=== PATIENT | male | born 1975 | race Caucasian/White ===

== ENCOUNTER 2020-10-21 21:47 | Observation (INO) | payer MEDICARE, OTHER ==
--- NOTE | 2020-10-21 22:49 | ED ---
Recheck HPI - General Stated Complaint: Abn Labs Time Seen by Provider: 10/21/20 21:56 Source: family, EMS Mode of arrival: EMS Limitations: language barrier, altered mental status, physical limitation - History of Present Illness Initial Comments: This patient is a 45-year-old man with history of [place] tooth. He arrives by ambulance to have evaluation for an abnormal lab. The patient had been seen by visiting nurse today as follow-up as he had been at [facility] due to hematuria last week. On the routine lab testing today, it was noted that his lactic acid was abnormal. Patient's family member states that this was reported as low. They did have not noticed a change in him today. History is from the patient's Aunt. Patient denies complaint MD Complaint: abnormal lab Onset/Timin -: hour(s) - Related Data Allergies Allergy/AdvReac Type Severity Reaction Status Date / Time Iodinated Contrast Media Allergy Rash/Hives Verified 10/21/20 22:35 prednisolone Allergy Itching Verified 10/21/20 22:35 strawberry Allergy Rash/Hives Verified 10/21/20 22:35 Review of Systems ROS Statement: Those systems with pertinent positive or pertinent negative responses have been documented in the HPI. ROS Other: All systems not noted in ROS Statement are negative. Constitutional: Denies: fever Respiratory: Denies: cough, dyspnea Cardiovascular: Denies: chest pain Gastrointestinal: Denies: abdominal pain Neurological: Denies: headache Past Medical History Additional Past Medical History / Comment(s): CMT, muscular dystrophy, tounge tied, speech impairment, History of Any Multi-Drug Resistant Organisms: None Reported Additional Past Surgical History / Comment(s): muscle biopsy, club foot left (Dr. dominguez) Past Psychological History: No Psychological Hx Reported Smoking Status: Never smoker Past Alcohol Use History: None Reported Past Drug Use History: None Reported General Exam Limitations: language barrier, altered mental status, physical limitation General appearance: alert, in no apparent distress, cachectic Head exam: Present: atraumatic, normocephalic Eye exam: Present: normal appearance. Absent: scleral icterus, conjunctival injection Respiratory exam: Present: normal lung sounds bilaterally. Absent: respiratory distress, wheezes, rales, rhonchi, stridor Cardiovascular Exam: Present: regular rate, normal rhythm, normal heart sounds. Absent: systolic murmur, diastolic murmur, rubs, gallop GI/Abdominal exam: Present: soft, other (Fullness in the left lower quadrant consistent with stool). Absent: distended, tenderness, guarding, rebound, rigid, mass exam: Present: other (Hollins catheter present otherwise normal inspection) Extremities exam: Present: other (There is symmetric muscle wasting) Neurological exam: Present: alert Skin exam: Present: warm, dry, intact, pallor. Absent: rash Course Vital Signs 10/21/20 10/22/20 10/22/20 22:24 02:16 03:00 Pulse Rate 85 78 81 Respiratory 16 16 15 Rate Blood Pressure 96/74 107/75 107/75 O2 Sat by Pulse 100 100 99 Oximetry Medical Decision Making - Lab Data Result diagrams: 10/22/20 00:05 10/22/20 00:05 Lab Results 10/22/20 10/22/20 10/22/20 Range/Units 00:05 00:05 00:05 WBC 2.8 L (3.8-10.6) k/uL RBC 4.28 L (4.30-5.90) m/uL Hgb 11.1 L (13.0-17.5) gm/dL Hct 32.6 L (39.0-53.0) % MCV 76.3 L (80.0-100.0) fL MCH 25.9 (25.0-35.0) pg MCHC 34.0 (31.0-37.0) g/dL RDW 17.0 H (11.5-15.5) % Plt Count 127 L (150-450) k/uL MPV 11.0 Neutrophils % 55 % Lymphocytes % 32 % Monocytes % 6 % Eosinophils % 2 % Basophils % 1 % Neutrophils # 1.5 (1.3-7.7) k/uL Lymphocytes # 0.9 L (1.0-4.8) k/uL Monocytes # 0.2 (0-1.0) k/uL Eosinophils # 0.1 (0-0.7) k/uL Basophils # 0.0 (0-0.2) k/uL Anisocytosis Slight Microcytosis Slight Sodium 135 L (137-145) mmol/L Potassium 3.5 (3.5-5.1) mmol/L Chloride 111 H (98-107) mmol/L Carbon Dioxide 15 L (22-30) mmol/L Anion Gap 9 mmol/L BUN 18 (9-20) mg/dL Creatinine 0.46 L (0.66-1.25) mg/dL Est GFR (CKD-EPI)AfAm >90 (>60 ml/min/1.73 sqM) Est GFR (CKD-EPI)NonAf >90 (>60 ml/min/1.73 sqM) Glucose 72 L (74-99) mg/dL Lactic Ac Sepsis Rflx Plasma Lactic Acid Naga 2.2 H* (0.7-2.0) mmol/L Calcium 8.8 (8.4-10.2) mg/dL Total Bilirubin 0.3 (0.2-1.3) mg/dL AST 45 (17-59) U/L ALT 24 (4-49) U/L Alkaline Phosphatase 115 (38-126) U/L Total Protein 5.8 L (6.3-8.2) g/dL Albumin 2.6 L (3.5-5.0) g/dL Urine Color Urine Appearance (Clear) Urine pH (5.0-8.0) Ur Specific [place] (1.001-1.035) Urine Protein (Negative) Urine Glucose (UA) (Negative) Urine Ketones (Negative) Urine Blood (Negative) Urine Nitrite (Negative) Urine Bilirubin (Negative) Urine Urobilinogen (<2.0) mg/dL Ur Leukocyte Esterase (Negative) Urine RBC (0-5) /hpf Urine WBC (0-5) /hpf Urine Bacteria (None) /hpf Urine Mucus (None) /hpf 10/22/20 10/22/20 Range/Units 01:59 02:05 WBC (3.8-10.6) k/uL RBC (4.30-5.90) m/uL Hgb (13.0-17.5) gm/dL Hct (39.0-53.0) % MCV (80.0-100.0) fL MCH (25.0-35.0) pg MCHC (31.0-37.0) g/dL RDW (11.5-15.5) % Plt Count (150-450) k/uL MPV Neutrophils % % Lymphocytes % % Monocytes % % Eosinophils % % Basophils % % Neutrophils # (1.3-7.7) k/uL Lymphocytes # (1.0-4.8) k/uL Monocytes # (0-1.0) k/uL Eosinophils # (0-0.7) k/uL Basophils # (0-0.2) k/uL Anisocytosis Microcytosis Sodium (137-145) mmol/L Potassium (3.5-5.1) mmol/L Chloride (98-107) mmol/L Carbon Dioxide (22-30) mmol/L Anion Gap mmol/L BUN (9-20) mg/dL Creatinine (0.66-1.25) mg/dL Est GFR (CKD-EPI)AfAm (>60 ml/min/1.73 sqM) Est GFR (CKD-EPI)NonAf (>60 ml/min/1.73 sqM) Glucose (74-99) mg/dL Lactic Ac Sepsis Rflx Y Plasma Lactic Acid Naga (0.7-2.0) mmol/L Calcium (8.4-10.2) mg/dL Total Bilirubin (0.2-1.3) mg/dL AST (17-59) U/L ALT (4-49) U/L Alkaline Phosphatase (38-126) U/L Total Protein (6.3-8.2) g/dL Albumin (3.5-5.0) g/dL Urine Color Yellow Urine Appearance Clear (Clear) Urine pH 6.5 (5.0-8.0) Ur Specific [place] 1.010 (1.001-1.035) Urine Protein 1+ H (Negative) Urine Glucose (UA) Negative (Negative) Urine Ketones Negative (Negative) Urine Blood Small H (Negative) Urine Nitrite Negative (Negative) Urine Bilirubin Negative (Negative) Urine Urobilinogen 2.0 (<2.0) mg/dL Ur Leukocyte Esterase Large H (Negative) Urine RBC 10 H (0-5) /hpf Urine WBC 8 H (0-5) /hpf Urine Bacteria Rare H (None) /hpf Urine Mucus Rare H (None) /hpf Disposition Clinical Impression: Lactic acidosis Disposition[facility] Is patient prescribed a controlled substance at d/c from ED?: No
[2020-10-22 00:36] LABS: Anisocytosis Slight; Basophils % (A) 1 %; Eosinophils # (A) 0.1 k/uL (0-0.7); Eosinophils % (A) 2 %; HCT 32.6 % (39.0-53.0); HGB 11.1 gm/dL (13.0-17.5); Lymphocytes # (A) 0.9 k/uL (1.0-4.8); Lymphocytes % (A) 32 %; MCH 25.9 pg (25.0-35.0); MCV 76.3 fL (80.0-100.0); Microcytosis Slight; Monocytes # (A) 0.2 k/uL (0-1.0); Monocytes % (A) 6 %; Neutrophils # (A) 1.5 k/uL (1.3-7.7); Neutrophils % (A) 55 %; Platelet Count 127 k/uL (150-450); RBC 4.28 m/uL (4.30-5.90); WBC 2.8 k/uL (3.8-10.6)
[2020-10-22 00:50] LABS: ALT 24 U/L (4-49); AST 45 U/L (17-59); African American GFR (CKD) >90 (>60 ml/min/1.73 sqM); Albumin 2.6 g/dL (3.5-5.0); Alkaline Phosphatase 115 U/L (38-126); Anion Gap 9 mmol/L; Blood Urea Nitrogen 18 mg/dL (9-20); Calcium 8.8 mg/dL (8.4-10.2); Carbon Dioxide 15 mmol/L (22-30); Chloride 111 mmol/L (98-107); Glucose 72 mg/dL (74-99); Non-African American GFR(CKD) >90 (>60 ml/min/1.73 sqM); Potassium 3.5 mmol/L (3.5-5.1); Sodium 135 mmol/L (137-145); Total Bilirubin 0.3 mg/dL (0.2-1.3); Total Protein 5.8 g/dL (6.3-8.2)
[2020-10-22] MEDS ORDERED: SODIUM CHLORIDE 0.9% 1,000 ML IV ONE (02:05)
[2020-10-22] MEDS ORDERED: SODIUM CHLORIDE 0.9% 1,000 ML IV STA (02:05)
--- NOTE | 2020-10-22 02:37 | XR ---
EXAMINATION TYPE: XR chest 1V portable DATE OF EXAM: 10/22/2020 COMPARISON: NONE HISTORY: Cough TECHNIQUE: Single view FINDINGS: Heart and mediastinum are normal. Lungs are clear. Diaphragm is normal. Bony thorax is inta ct. There is slight thoracic dextroscoliosis. IMPRESSION: No active cardiopulmonary disease. Normal heart.
[2020-10-22] MEDS ORDERED: ACETAMINOPHEN TAB 325 MG TAB PO PRN (02:40)
[2020-10-22] MEDS ORDERED: NALOXONE 0.4 MG/ML 1 ML VIAL IV PRN (02:40)
[2020-10-22] MEDS ORDERED: SODIUM CHLORIDE 0.9% 1,000 ML IV SCH (02:45)
[2020-10-22 02:56] LABS: Appearance,Urine Clear (Clear); Bacteria,Urine Rare /hpf; Bilirubin,Urine Negative (Negative); Blood,Urine Small (Negative); Color,Urine Yellow; Glucose,Urine (UA) Negative (Negative); Ketones,Urine Negative (Negative); Leukocyte Esterase,Urine Large (Negative); Mucus,Urine Rare /hpf; Nitrite,Urine Negative (Negative); PH, Urine 6.5 (5.0-8.0); Protein,Urine 1+ (Negative); RBC,Urine 10 /hpf (0-5); WBC,Urine 8 /hpf (0-5)
[2020-10-22 11:23] LABS: African American GFR (CKD) >90 (>60 ml/min/1.73 sqM); Anion Gap 7 mmol/L; Blood Urea Nitrogen 16 mg/dL (9-20); Calcium 8.2 mg/dL (8.4-10.2); Carbon Dioxide 13 mmol/L (22-30); Chloride 118 mmol/L (98-107); Glucose 101 mg/dL (74-99); Non-African American GFR(CKD) >90 (>60 ml/min/1.73 sqM); Potassium 4.3 mmol/L (3.5-5.1); Sodium 138 mmol/L (137-145)
[2020-10-22] MEDS: NYSTATIN 100,000UNIT/GM CREAM 30 GM TUBE TOPICAL SCH ×2 (12:30→23:32)
[2020-10-22] MEDS ORDERED: DEXTROSE 5% IN WATER 1,000 ML with SODIUM ACETATE 100 MEQ IV SCH (13:00)
[2020-10-22 13:37] LABS: Anisocytosis Slight; HCT 28.6 % (39.0-53.0); Hypochromasia Slight; MCH 25.7 pg (25.0-35.0); MCHC 33.1 g/dL (31.0-37.0); MCV 77.7 fL (80.0-100.0); Mean Platelet Volume 13.5; Microcytosis Slight; Platelet Count 117 k/uL (150-450); Poikilocytosis Slight; RBC 3.68 m/uL (4.30-5.90); WBC 2.5 k/uL (3.8-10.6)
[2020-10-22 13:43] LABS: HGB 9.5 gm/dL (13.0-17.5)
[2020-10-22 14:04] LABS: Basophils # (M) 0.03 k/uL (0-0.2); Lymphocytes # (M) 0.68 k/uL (1.0-4.8); Monocytes # (M) 0.08 k/uL (0-1.0); Neutrophils # (M) 1.63 k/uL (1.3-7.7); Neutrophils % (M) 65 %; Nucleated Red Blood Cells 0 /100 WBC (0-0); Total Cells Counted 100
[2020-10-22 14:06] LABS: Large Platelets Present
--- NOTE | 2020-10-22 16:07 | P.HPIM ---
History of Present Illness H&P Date: 10/22/20 Chief Complaint: Abnormal labs History of presenting complaint: This is a 45-year-old patient who follows with visiting physicians Dr. Pino. History is obtained by patient's aunt pippa was also the POA. Patient is 24 7 care. Patient is severely tongue-tied and had a very slurred speech. Patient did speak a few words and follow commands. Unable to walk. Patient not able to feed himself. Patient is having hematuria and had been taking to [facility]. Details are not known. Current Hollins catheters for 2 weeks. Since that hematuria is resolved. Patient does take a pured diet. Appetite is fair. Patient has Afwckaw-[id number]-ivzwp. Patient was sent in for abnormal labs. That is abnormal lactic acid. Patient for a lactic acid of 2.2 and abnormal UA. Review of systems cannot be done as patient is not able to speak. Relevant finding as above Past medical history to include: Fbmxvqy-qsqqk-[id number], not ambulatory, Hollins catheter, needs help with feeding, 24 7 caregivers, tongue-tied Social history: 24 7 caregivers. Nonambulatory. Hollins catheter. Needs help with feeding Family history: Noncontributory, reviewed Physical examination: VITAL SIGNS: 97.7, 74, 16, 101/68, 100% room air GENERAL: BMI 15.7, reclining in bed, awake. EYES: Pupils equal. Conjunctiva normal. HEENT: External appearance of nose and ears normal, oral cavity grossly normal. NECK: JVD not raised; masses not palpable. HEART: First and second heart sounds are normal; no edema. LUNGS: Respiratory rate normal; clear to auscultation. ABDOMEN: Soft, nontender, liver spleen not palpable, no masses palpable. Hollins catheter PSYCH: Unable to assess. Very slurred speech.l. NEUROLOGICAL: [Cranial nerves grossly intact; no facial asymmetry, decreased bowel in the limbs. Footdrop. Very slurred speech. LYMPHATICS: No lymph nodes palpable in the axilla and neck INVESTIGATIONS, reviewed in the clinical context: WBC 2.5 hemoglobin 9.5 platelets 117 potassium 4.3 bicarb 13 BUN 16 creatinine 0.45 lactic acid 2.2 albumin 2.6 UA positive for leukoesterase, WBC Assessment and plan: -Possible acute UTI with cystitis secondary to Hollins catheter IV ceftriaxone 1 g every 12. -Lactic acidosis, could be from infection IV fluids -Severe protein calorie malnutrition with a BMI of 15.7 Nutritional supplements. 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 IV ceftriaxone. Feeding with assistance. Check iron studies. Care discussed in detail with patient's POA at the bedside. They're able to provide 24 7 bedside care of the hospital will be done in the best interest of the patient. Past Medical History Additional Past Medical History / Comment(s): CMT, muscular dystrophy, tounge tied, speech impairment, History of Any Multi-Drug Resistant Organisms: None Reported Additional Past Surgical History / Comment(s): muscle biopsy, club foot left (Dr. dominguez) Smoking Status: Never smoker - Past Family History Mother Family Medical History: No Reported History Medications and Allergies Home Medications Medication Instructions Recorded Confirmed Type Cholecalciferol [Vitamin D3 (25 50 mcg PO MOTUWETHFR 10/22/20 10/22/20 History Mcg = 1000 Iu)] Nystatin 100,000Unit/gm Cream 1 applic TOPICAL BID 10/22/20 10/22/20 History [Mycostatin Cream] cephALEXin [Keflex] 500 mg PO TID 10/22/20 10/22/20 History Allergies Allergy/AdvReac Type Severity Reaction Status Date / Time Iodinated Contrast Media Allergy Rash/Hives Verified 10/22/20 09:08 prednisolone Allergy Itching Verified 10/22/20 09:08 strawberry Allergy Rash/Hives Verified 10/22/20 09:08 Physical Exam Vitals: Vital Signs Temp Pulse Pulse Resp BP BP Pulse Ox 10/22/20 07:00 97.7 F 74 16 101/68 100 10/22/20 03:00 81 15 107/75 99 10/22/20 02:16 78 16 107/75 100 10/21/20 22:24 85 16 96/74 100 Intake and Output 10/21/20 10/22/20 10/22/20 22:59 06:59 14:59 Output Total 700 Balance -700 Output: Urine 700 Other: Voiding Method Indwelling Catheter Weight 45.359 kg 45.359 kg Results CBC & Chem 7: 10/22/20 11:06 10/22/20 11:06 Labs: Abnormal Lab Results - Last 24 Hours (Table) 10/22/20 10/22/20 10/22/20 Range/Units 00:05 00:05 00:05 WBC 2.8 L (3.8-10.6) k/uL RBC 4.28 L (4.30-5.90) m/uL Hgb 11.1 L (13.0-17.5) gm/dL Hct 32.6 L (39.0-53.0) % MCV 76.3 L (80.0-100.0) fL RDW 17.0 H (11.5-15.5) % Plt Count 127 L (150-450) k/uL Lymphocytes # 0.9 L (1.0-4.8) k/uL Sodium 135 L (137-145) mmol/L Chloride 111 H (98-107) mmol/L Carbon Dioxide 15 L (22-30) mmol/L Creatinine 0.46 L (0.66-1.25) mg/dL Glucose 72 L (74-99) mg/dL Plasma Lactic Acid Naga 2.2 H* (0.7-2.0) mmol/L Total Protein 5.8 L (6.3-8.2) g/dL Albumin 2.6 L (3.5-5.0) g/dL Urine Protein (Negative) Urine Blood (Negative) Ur Leukocyte Esterase (Negative) Urine RBC (0-5) /hpf Urine WBC (0-5) /hpf Urine Bacteria (None) /hpf Urine Mucus (None) /hpf 10/22/20 Range/Units 02:05 WBC (3.8-10.6) k/uL RBC (4.30-5.90) m/uL Hgb (13.0-17.5) gm/dL Hct (39.0-53.0) % MCV (80.0-100.0) fL RDW (11.5-15.5) % Plt Count (150-450) k/uL Lymphocytes # (1.0-4.8) k/uL Sodium (137-145) mmol/L Chloride (98-107) mmol/L Carbon Dioxide (22-30) mmol/L Creatinine (0.66-1.25) mg/dL Glucose (74-99) mg/dL Plasma Lactic Acid Naga (0.7-2.0) mmol/L Total Protein (6.3-8.2) g/dL Albumin (3.5-5.0) g/dL Urine Protein 1+ H (Negative) Urine Blood Small H (Negative) Ur Leukocyte Esterase Large H (Negative) Urine RBC 10 H (0-5) /hpf Urine WBC 8 H (0-5) /hpf Urine Bacteria Rare H (None) /hpf Urine Mucus Rare H (None) /hpf Thrombosis Risk Factor Assmnt - Choose All That Apply Each Factor Represents 1 point: Age 41-60 years Other Risk Factors: Yes Each Risk Factor Represents 2 Points: Patient confined to bed Thrombosis Risk Factor Assessment Total Risk Factor Score: 3 Thrombosis Risk Factor Assessment Level: Moderate Risk
[2020-10-22] MEDS: ENOXAPARIN 40 MG/0.4 ML SYRINGE SQ SCH (17:45)
[2020-10-22] MEDS: DEXTROSE 5% IN WATER 1,000 ML with SODIUM BICARB (1 MEQ/ML) 100 ML IV SCH (18:03)
[2020-10-22 23:40] LABS: Glucose,Whole Blood 105 mg/dL (75-99)
[2020-10-23 01:30] LABS: Ferritin 217.4 ng/mL (22.0-322.0)
[2020-10-23 02:29] VITALS: PULSE 77
[2020-10-23 03:16] LABS: % Iron Saturation 26.26 (15.00-50.00)
[2020-10-23] MEDS: DEXTROSE 5% IN WATER 1,000 ML with SODIUM BICARB (1 MEQ/ML) 100 ML IV SCH (04:54)
[2020-10-23 08:13] VITALS: BP 82/55; RESP 18; TEMP 97.6
[2020-10-23] MEDS: ENOXAPARIN 40 MG/0.4 ML SYRINGE SQ SCH (08:14)
[2020-10-23] MEDS ORDERED: LORATADINE-PSEUDOEPH 5-120 MG 1 EACH TAB.ER.12H PO SCH (10:45)
[2020-10-23] MEDS ORDERED: LACTATED RINGERS 1,000 ML IV SCH (10:45)
--- NOTE | 2020-10-23 10:56 | P.CONS ---
History of Present Illness - Reason for Consult Consult date: 10/23/20 wound care - History of Present Illness This is a 45-year-old gentleman being seen by the wound care center for a rash and dry scaly skin to the back. Per his mother the rash started approximately 3 weeks ago when he was in a another facility. Applied a thick layer of white substance to the rash. Since that time the dry skin and residual ointment have been flaking off. There is no open ulcerations at this time. Patient states that he is not having any itching or discomfort to the site. Patient's past medical history is significant for CMT, muscular dystrophy, tongue-tied, speech impairment. Review of systems: Unable to obtain due to speech impairment Physical exam: General Appearance: Alert, cooperative, no distress, appears stated age. Skin: See HPI all other Skin color, texture, tugor normal, no rashes or lesions. Neurologic: Alert oriented x3 Assessment: 1. Rash Plan: 1. Wash with clean soap and water dry thoroughly. No need for any lotions or creams at this time. If an open ulceration occurs please contact the wound care center for reevaluation. Thank you for the consultation any questions please contact the wound care center DNP note has been reviewed and discussed with Dr. Colbert and the impression and plan of care has been directed as dictated. Past Medical History Additional Past Medical History / Comment(s): CMT, muscular dystrophy, tounge tied, speech impairment, History of Any Multi-Drug Resistant Organisms: None Reported Additional Past Surgical History / Comment(s): muscle biopsy, club foot left (Dr. dominguez) Smoking Status: Never smoker - Past Family History Mother Family Medical History: No Reported History Medications and Allergies Home Medications Medication Instructions Recorded Confirmed Type Cholecalciferol [Vitamin D3 (25 50 mcg PO MOTUWETHFR 10/22/20 10/22/20 History Mcg = 1000 Iu)] Nystatin 100,000Unit/gm Cream 1 applic TOPICAL BID 10/22/20 10/22/20 History [Mycostatin Cream] cephALEXin [Keflex] 500 mg PO TID 10/22/20 10/22/20 History Loratadine-Pseudoeph 5-120 mg 1 each PO Q12HR #30 tab.er.12h 10/23/20 Rx [Claritin-D 12 Hour] Allergies Allergy/AdvReac Type Severity Reaction Status Date / Time Iodinated Contrast Media Allergy Rash/Hives Verified 10/22/20 09:08 prednisolone Allergy Itching Verified 10/22/20 09:08 strawberry Allergy Rash/Hives Verified 10/22/20 09:08 Physical Exam Vitals: Vital Signs Temp Pulse Resp BP Pulse Ox 10/23/20 08:00 77 18 10/23/20 07:00 97.6 F 77 18 82/55 100 10/23/20 02:00 98.6 F 77 17 91/61 95 10/22/20 20:00 97.5 F L 80 18 83/55 98 10/22/20 15:00 97.6 F 84 20 92/63 98 Intake and Output 10/22/20 10/23/20 10/23/20 22:59 06:59 14:59 Output Total 200 200 Balance -200 -200 Output: Urine 200 200 Other: Voiding Method Indwelling Catheter Indwelling Catheter Indwelling Catheter Results CBC & Chem 7: 10/22/20 11:06 10/22/20 11:06 Labs: Abnormal Lab Results - Last 24 Hours (Table) 10/22/20 10/22/20 10/22/20 Range/Units 11:06 11:06 16:21 WBC 2.5 L (3.8-10.6) k/uL RBC 3.68 L (4.30-5.90) m/uL Hgb 9.5 L D (13.0-17.5) gm/dL Hct 28.6 L (39.0-53.0) % MCV 77.7 L (80.0-100.0) fL RDW 18.0 H (11.5-15.5) % Plt Count 117 L (150-450) k/uL Lymphocytes # (Manual) 0.68 L (1.0-4.8) k/uL Chloride 118 H (98-107) mmol/L Carbon Dioxide 13 L (22-30) mmol/L Creatinine 0.45 L (0.66-1.25) mg/dL Glucose 101 H (74-99) mg/dL POC Glucose (mg/dL) (75-99) mg/dL Calcium 8.2 L (8.4-10.2) mg/dL Iron 47 L (65-175) ug/dL TIBC 179 L (228-460) ug/dL 08/19/21 Range/Units 23:38 WBC (3.8-10.6) k/uL RBC (4.30-5.90) m/uL Hgb (13.0-17.5) gm/dL Hct (39.0-53.0) % MCV (80.0-100.0) fL RDW (11.5-15.5) % Plt Count (150-450) k/uL Lymphocytes # (Manual) (1.0-4.8) k/uL Chloride (98-107) mmol/L Carbon Dioxide (22-30) mmol/L Creatinine (0.66-1.25) mg/dL Glucose (74-99) mg/dL POC Glucose (mg/dL) 105 H (75-99) mg/dL Calcium (8.4-10.2) mg/dL Iron (65-175) ug/dL TIBC (228-460) ug/dL Assessment and Plan (1) Rash and nonspecific skin eruption Current Visit: Yes Status: Acute Code(s): R21 - RASH AND OTHER NONSPECIFIC SKIN ERUPTION SNOMED Code(s): 718954510
[2020-10-23 12:25] LABS: African American GFR (CKD) >90 (>60 ml/min/1.73 sqM); Anion Gap 5 mmol/L; Blood Urea Nitrogen 18 mg/dL (9-20); Calcium 7.7 mg/dL (8.4-10.2); Carbon Dioxide 19 mmol/L (22-30); Chloride 112 mmol/L (98-107); Glucose 110 mg/dL (74-99); Non-African American GFR(CKD) >90 (>60 ml/min/1.73 sqM); Potassium 2.8 mmol/L (3.5-5.1); Sodium 136 mmol/L (137-145)
[2020-10-23 12:27] LABS: Anisocytosis Slight; HCT 27.7 % (39.0-53.0); HGB 9.4 gm/dL (13.0-17.5); MCH 26.3 pg (25.0-35.0); MCHC 34.1 g/dL (31.0-37.0); Microcytosis Slight; Poikilocytosis Slight; RBC 3.59 m/uL (4.30-5.90); WBC 9.4 k/uL (3.8-10.6)
[2020-10-23 12:53] LABS: Platelet Count 81 k/uL (150-450)
[2020-10-23 13:48] LABS: Appearance,Urine Cloudy (Clear); Bacteria,Urine Rare /hpf; Bilirubin,Urine Negative (Negative); Blood,Urine Large (Negative); Color,Urine Yellow; Glucose,Urine (UA) Negative (Negative); Ketones,Urine Negative (Negative); Leukocyte Esterase,Urine Large (Negative); Mucus,Urine Occasional /hpf; Nitrite,Urine Negative (Negative); PH, Urine 5.5 (5.0-8.0); Protein,Urine 2+ (Negative); RBC,Urine >182 /hpf (0-5); Specific Gravity,Urine 1.014 (1.001-1.035); Squamous Epithelial Cell,Urine <1 /hpf (0-4); Urobilinogen,Urine <2.0 mg/dL (<2.0); WBC,Urine 22 /hpf (0-5)
--- NOTE | 2020-10-23 22:46 | P.DS ---
Providers Date of admission: 10/22/20 02:40 Expected date of discharge: 10/23/20 Attending physician: Nate Medrano Primary care physician: Nicholas Pino MD Hospital Course: Chief Complaint: Abnormal labs History of presenting complaint: This is a 45-year-old patient who follows with visiting physicians Dr. Pino. History is obtained by patient's aunt ga was also the POA. Patient is 24 7 care. Patient is severely tongue-tied and had a very slurred speech. Patient did speak a few words and follow commands. Unable to walk. Patient not able to feed himself. Patient is having hematuria and had been taking to [facility]. Details are not known. Current Hollins catheters for 2 weeks. Since that hematuria is resolved. Patient does take a pured diet. Appetite is fair. Patient has Ehkwwfz-cweql-mizsk. Patient was sent in for abnormal labs. That is abnormal lactic acid. Patient for a lactic acid of 2.2 and abnormal UA. Patient was treated with acute UTI with IV ceftriaxone. IV fluids for dehydration. October 23: Patient has significant fungal infection of the back. Topical cream as dictated. Patient's caregiver and very keen to take him home today. He don't want to wait 1 more day. Care was discussed at length. Patient has chronic secretions in the mouth. Did discuss about aspiration risk. She understands the same. Patient seen by speech therapist. No overt signs of aspiration. Silent aspiration remains a risk. Discussion and discharge planning more than 35 minutes Past medical history to include: Gwmxjji-sttka-fzjfu, not ambulatory, Hollins catheter, needs help with feeding, 24 7 caregivers, tongue-tied Social history: 24 7 caregivers. Nonambulatory. Hollins catheter. Needs help with feeding Family history: Noncontributory, reviewed Physical examination: VITAL SIGNS: 97.6, 77, 18, 82/55, 100% room air GENERAL: BMI 15.7, reclining in bed, awake. EYES: Pupils equal. Conjunctiva normal. HEENT: External appearance of nose and ears normal, oral cavity grossly normal. NECK: JVD not raised; masses not palpable. HEART: First and second heart sounds are normal; no edema. LUNGS: Respiratory rate normal; clear to auscultation. ABDOMEN: Soft, nontender, liver spleen not palpable, no masses palpable. Hollins catheter DERMATOLOGICAL: Demarcated redness at the back, back of the thighs in area of contact on the bed. Likely fungal PSYCH: Unable to assess. Very slurred speech.l. NEUROLOGICAL: decreased powerl in the limbs. [place]drop. Very slurred speech. INVESTIGATIONS, reviewed in the clinical context: June 23: WBC 9.4 hemoglobin 9.4 platelets 81 creatinine 0.4 Iron 47. TIBC 179. Percent saturation 26 WBC 2.5 hemoglobin 9.5 platelets 117 potassium 4.3 bicarb 13 BUN 16 creatinine 0.45 lactic acid 2.2 albumin 2.6 UA positive for leukoesterase, WBC Assessment and plan: -Possible acute UTI with cystitis secondary to Hollins catheter IV ceftriaxone 1 g every 12. -Lactic acidosis, could be from infection IV fluids -Severe protein calorie malnutrition with a BMI of 15.7 Nutritional supplements. 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 -Microcytic anemia Possibly iron deficiency anemia -Candidiasis of the back and behind the thighs Topical nystatin -Patient's aunt KIP DasDavid Disposition: Home Plan - Discharge Summary New Discharge Prescriptions: New Loratadine-Pseudoeph 5-120 mg [Claritin-D 12 Hour] 1 each PO Q12HR #30 tab.er.12h Continue Nystatin 100,000Unit/gm Cream [Mycostatin Cream] 1 applic TOPICAL BID Cholecalciferol [Vitamin D3 (25 Mcg = 1000 Iu)] 50 mcg PO MOTUWETHFR cephALEXin [Keflex] 500 mg PO TID Discharge Medication List Cholecalciferol [Vitamin D3 (25 Mcg = 1000 Iu)] 50 mcg PO MOTUWETHFR 10/22/20 [History] Nystatin 100,000Unit/gm Cream [Mycostatin Cream] 1 applic TOPICAL BID 10/22/20 [History] cephALEXin [Keflex] 500 mg PO TID 10/22/20 [History] Loratadine-Pseudoeph 5-120 mg [Claritin-D 12 Hour] 1 each PO Q12HR #30 tab.er.12h 10/23/20 [Rx] Follow up Appointment(s)/Referral(s): Nicholas Pino MD [Primary Care Provider] - 1-2 days
== END 2020-10-23 14:24 ==
LOC: EEVIPCON 21:47 → EC 21:47 → 6NMEDSUR 10-22 02:40
PROVIDERS: ADMIT Hospitalist; ATTEND Hospitalist
DX: E87.2 Acidosis (principal); E86.0 Dehydration; E43 Unspecified severe protein-calorie malnutrition; R82.90 Unspecified abnormal findings in urine; B37.2 Candidiasis of skin and nail; G60.0 Hereditary motor and sensory neuropathy; G71.00 Muscular dystrophy, unspecified; Q66.89 Other specified congenital deformities of feet; D64.9 Anemia, unspecified; Q38.1 Ankyloglossia; R47.1 Dysarthria and anarthria; R47.81 Slurred speech; Z68.1 Body mass index [BMI] 19.9 or less, adult; R53.81 Other malaise; Z91.041 Radiographic dye allergy status; Z88.8 Allergy status to other drugs, medicaments and biological substances; Z91.018 Allergy to other foods; Z96.0 Presence of urogenital implants; Z74.01 Bed confinement status
CPT/HCPCS: 96365; 96372 ×2; 99285; 36415; 92610; 80053; 80048 ×2; 82728; 83540; 83550; 83605; 85025; 85027; 81001 ×2; 87086; 71045; G0378 ×2; J1650 ×2; J0696